=== PATIENT | male | born 1955 | race Caucasian/White ===

== ENCOUNTER 2018-08-17 21:22 | Inpatient (IN) | payer MEDICAID ==
[~2018-08-17] VITALS: Ht 165.1 cm; Wt 108.3 kg
[~2018-08-17 21:22] MED LIST: CEPH500 PO; HYDACE5 PO
[2018-08-17 22:15] LABS: BASOPHILS ABSOLUTE AUTO 0.08 K/mm3 (0.00-0.23); BASOPHILS PERCENT AUTO 0 % (0-2); EOSINOPHILS PERCENT AUTO 0 % (0-6); Hemoglobin 17.1 g/dL (13.5-17.5); IMMATURE GRAN ABSOLUTE AUTO 0.19 K/mm3 (0.00-0.10); IMMATURE GRAN PERCENT AUTO 1 % (0-1); LYMPHOCYTES ABSOLUTE AUTO 3.61 K/mm3 (0.84-5.20); LYMPHOCYTES PERCENT AUTO 12 % (21-46); MONOCYTES ABSOLUTE AUTO 2.19 K/mm3 (0.16-1.47); MONOCYTES PERCENT AUTO 7 % (4-13); Mean Corpuscular HGB 29.7 pg (26.0-34.0); Mean Corpuscular HGB Conc 34.2 g/dL (31.5-36.5); Mean Corpuscular Volume 87 fL (80-100); Mean Platelet Volume 11.1 fL (9.1-12.4); NEUTROPHILS ABSOLUTE AUTO 23.79 K/mm3 (1.96-9.15); NEUTROPHILS PERCENT AUTO 80 % (41-73); Platelet Count 355 K/mm3 (150-400); RDW Coefficient Variation 12.7 % (11.7-14.2); RDW Standard Deviation 40.5 fL (35.1-46.3); Red Blood Cell Count 5.75 M/mm3 (4.30-5.90); White Blood Cell Count 29.96 K/mm3 (4.00-11.30)
[2018-08-17 22:38] LABS: Albumin, Blood 4.5 g/dL (3.4-5.0); Albumin/Globulin Ratio 1.1 (0.8-1.8); Bilirubin, Total 0.6 mg/dL (0.1-1.0); Bun/Creatinine Ratio 12.9 (12.0-20.0); Creatinine, Blood 1.32 mg/dL (0.60-1.20); Potassium, Blood 3.8 mmol/L (3.5-5.5); Total Protein, Blood 8.5 g/dL (6.4-8.2)
[2018-08-18 05:40] LABS: Hemoglobin 15.5 g/dL (13.5-17.5); Mean Corpuscular HGB 29.9 pg (26.0-34.0); Mean Corpuscular HGB Conc 33.7 g/dL (31.5-36.5); Mean Corpuscular Volume 89 fL (80-100); Mean Platelet Volume 10.8 fL (9.1-12.4); Platelet Count 259 K/mm3 (150-400); RDW Coefficient Variation 12.9 % (11.7-14.2); Red Blood Cell Count 5.19 M/mm3 (4.30-5.90); White Blood Cell Count 16.71 K/mm3 (4.00-11.30)
[2018-08-18 06:02] LABS: Alanine Aminotransfer (ALT/SGP 51 U/L (12-78); Albumin, Blood 3.8 g/dL (3.4-5.0); Albumin/Globulin Ratio 1.1 (0.8-1.8); Alk Phos 81 U/L (50-136); Anion Gap 11 mmol/L (6-16); Aspartate Aminotrans (AST/SGOT 39 U/L (12-37); Bilirubin, Total 0.9 mg/dL (0.1-1.0); Blood Urea Nitrogen 21 mg/dL (8-24); Bun/Creatinine Ratio 19.6 (12.0-20.0); CO2, Blood 22 mmol/L (21-32); Calcium, Blood 8.6 mg/dL (8.5-10.1); Chloride, Blood 108 mmol/L (98-108); Creatinine, Blood 1.07 mg/dL (0.60-1.20); Globulin, Blood 3.5 g/dL (2.2-4.0); Glomerular Filtration Rate >60 (60-); Glucose, Blood 148 mg/dL (70-99); Potassium, Blood 4.1 mmol/L (3.5-5.5); Sodium, Blood 141 mmol/L (136-145); Total Protein, Blood 7.3 g/dL (6.4-8.2)
[2018-08-18 16:34] LABS: Source, Urine Clean Catch
[2018-08-18 16:36] LABS: Bilirubin, Urine Neg (Neg); Blood, Urine Neg (Neg); Glucose Qualitative, Urine Neg (Neg); Ketones, Urine Neg (Neg); Leukocyte Esterase, Urine Neg (Neg); Nitrite, Urine Neg (Neg); Protein, Urine 1+ (Neg); Specific Gravity, Urine 1.025 (1.003-1.022); Urobilinogen, Urine NORM (Normal)
[2018-08-18 16:58] LABS: Appearance, Urine Hazy (Clear); Color, Urine Yellow (P-Yellow)
[2018-08-18 16:59] LABS: Bacteria Not Seen /hpf; Red Blood Cells, Urine Not Seen /hpf (0-2); Squamous Epithelial Cells Rare /hpf (Few); White Blood Cells, Urine Not Seen /hpf (0-5)
--- NOTE | 2018-08-18 17:20 | NUR ---
SHIFT SUMMARY RECEIVED HANDOFF FROM ER NURSE MIRA AT 1255 HOURS. PT ARRIVED ON FLOOR WNL. ADMITTED FOR GASTROENTERITIS. PT HAS ELEVATED WBC AND LACTIC ACID LABS. I SENT A UA SAMPLE TO LAB. PT IS ON A CLEAR LIQUID DIET. PT IS A&O X4 AND INDEPENDENT IN ROOM . SHE HAS AN 18 IN THE RT AC - INFUSING NS @ 75 ML/HR, SHE HAS A 20 IN LFT AC - SALINE LOCKED. PT IS ON LOVENOX FOR DVT PROPHYLAXIS. I HAVE INFORMED THE PT THAT WE STILL NEED A STOOL SAMPLE AND WILL PASS THIS INFO ALONG TO EQUIPMENT MANAGER & APPRAISER AUDITOR RN
[2018-08-18 21:46] LABS: Adenovirus F 40/41 Not Detected (NOT DETECT); Astrovirus Not Detected (NOT DETECT); Campylobacter Sp Not Detected (NOT DETECT); Cryptosporidium Not Detected (NOT DETECT); Cyclospora Cayetanensis Not Detected (NOT DETECT); E. Coli O157 Not Detected (NOT DETECT); Entamoeba Histolytica Not Detected (NOT DETECT); Enteroaggregative E. coli-EAEC Not Detected (NOT DETECT); Enteropathogenic E. coli-EPEC Not Detected (NOT DETECT); Enterotoxigenic E. coli-ETEC Not Detected (NOT DETECT); Giardia Lamblia Not Detected (NOT DETECT); Norovirus GI/GII Detected (NOT DETECT); Plesiomonas Shigelloides Not Detected (NOT DETECT); Rotavirus A Not Detected (NOT DETECT); Salmonella Sp Not Detected (NOT DETECT); Sapovirus Not Detected (NOT DETECT); Shiga Toxin-prod E. coli-STEC Not Detected (NOT DETECT); Shigella/Enteroin E. coli-EIEC Not Detected (NOT DETECT); Vibrio Cholerae Not Detected (NOT DETECT); Vibrio Sp Not Detected (NOT DETECT); Yersinia Enterocolitica Not Detected (NOT DETECT)
--- NOTE | 2018-08-19 04:31 | NUR ---
SHIFT SUMMARY THE PATIENT PRESENTED THIS SHIFT WITH VITALS WNL, A&O X4 AND WITH LUNGS THAT WERE CLEAR. THE PATIENT SLEPT MOST OF THE SHIFT AND IS INDEPENDENT IN HIS ROOM. THE PATIENT HAS BEEN ASLEEP AT CHECKS AND HAS NOT CALLED FOR ANY NEED. THE PATIENT IS SLEEPING AT THIS TIME, WILL CONTINUE TO MONITOR.
--- NOTE | 2018-08-19 07:54 | NUR ---
ASSUMED CARE: PT RESTING QUIETLY IN BED. ASSUMED CARE FROM SUDHEER HARRY. NO ACUTE NEEDS OR CONCERNS AT THIS TIME.
--- NOTE | 2018-08-19 11:16 | NUR ---
IV'S REMOVED WNL. INSTRUCTIONS GIVEN ABOUT DC AND FINDING PCP. LIST OF ACCEPTING PROVIDERS GIVEN TO PT. AMBULATORY UPON DC. NO FURTHER NEEDS OR CONCERNS
== END 2018-08-19 11:13 | disposition home or self-care (01) | DRG 872 ==
LOC: ER 21:22 → ERHOLD 21:23 → MEDS 08-18 01:28 → ENPENDDIS 08-19 09:44 → MEDS 08-19 11:13
PROVIDERS: Emergency Medicine; ADMIT Internal Medicine
DX: A41.9 Sepsis, unspecified organism (principal); A08.11 Acute gastroenteropathy due to Norwalk agent; E86.0 Dehydration; K43.9 Ventral hernia without obstruction or gangrene; Z87.891 Personal history of nicotine dependence
CPT/HCPCS: 36415; 71045; 74176; 80053; 81001; 83605; 83690; 84145; 85025; 85027; 87507; 93005; 93010; 96361; 96374; 96375; 96376; 99285-25; J1170; J1650; J1885; J2405; J3010; J7030; J7120

== ENCOUNTER 2024-10-12 06:06 | Emergency (ER) | payer MEDICARE, OTHER ==
[~2024-10-12] VITALS: Ht 165.1 cm; Wt 106.6 kg
[~2024-10-12 06:06] MED LIST changes: +CYCL10 PO; +NAPR500 PO
[2024-10-12] MEDS ORDERED: Meclizine HCl 25 MG Tab PO ONE (06:25)
[2024-10-12 06:58] LABS: BASOPHILS ABSOLUTE AUTO 0.02 K/mm3 (0.00-0.23); BASOPHILS PERCENT AUTO 0 % (0-2); EOSINOPHILS ABSOLUTE AUTO 0.15 K/mm3 (0.00-0.68); EOSINOPHILS PERCENT AUTO 2 % (0-6); Hematocrit 41.4 % (37.0-53.0); Hemoglobin 14.6 g/dL (13.5-17.5); IMMATURE GRAN ABSOLUTE AUTO 0.02 K/mm3 (0.00-0.10); IMMATURE GRAN PERCENT AUTO 0 % (0-1); LYMPHOCYTES ABSOLUTE AUTO 2.26 K/mm3 (0.84-5.20); LYMPHOCYTES PERCENT AUTO 30 % (21-46); MONOCYTES ABSOLUTE AUTO 0.63 K/mm3 (0.16-1.47); MONOCYTES PERCENT AUTO 9 % (4-13); Mean Corpuscular HGB 30.9 pg (26.0-34.0); Mean Corpuscular HGB Conc 35.3 g/dL (31.5-36.5); Mean Corpuscular Volume 88 fL (80-100); Mean Platelet Volume 11.3 fL (9.1-12.4); NEUTROPHILS ABSOLUTE AUTO 4.35 K/mm3 (1.96-9.15); NEUTROPHILS PERCENT AUTO 59 % (41-73); Platelet Count 230 K/mm3 (150-400); RDW Standard Deviation 41.1 fL (35.1-46.3); Red Blood Cell Count 4.73 M/mm3 (4.30-5.90); White Blood Cell Count 7.43 K/mm3 (4.00-11.30)
[2024-10-12 07:16] LABS: Albumin, Blood 3.6 g/dL (3.4-5.0); Albumin/Globulin Ratio 1.1 (0.8-1.8); Bilirubin, Total 0.3 mg/dL (0.1-1.0); Calcium, Blood 8.9 mg/dL (8.5-10.1); Creatinine, Blood 0.84 mg/dL (0.60-1.20); Globulin, Blood 3.2 g/dL (2.2-4.0); Potassium, Blood 4.1 mmol/L (3.5-5.5); Total Protein, Blood 6.8 g/dL (6.4-8.2)
[2024-10-12] MEDS ORDERED: MECL25 PO (08:14)
[2024-10-12 08:30] VITALS: BP 162/89
== END 2024-10-12 08:48 | disposition home or self-care (01) ==
LOC: ER 06:06
PROVIDERS: Emergency Medicine
DX: R42 Dizziness and giddiness (principal); R00.1 Bradycardia, unspecified; Z87.891 Personal history of nicotine dependence
CPT/HCPCS: 80053; 84484; 85025; 93005; 93010; 99284-25; A9270